=== PATIENT | male | born 1955 | race Caucasian/White ===

== ENCOUNTER 2016-08-13 11:44 | Outpatient (CLI) | payer OTHER | END 2016-08-13 11:45 | disposition home or self-care (01) | DX: Z53.9 Procedure and treatment not carried out, unspecified reason (principal) ==

== ENCOUNTER 2016-08-14 09:15 | Outpatient (CLI) | payer OTHER ==
[2016-08-14] MEDS ORDERED: IOPAMIDOL-300 100 ML VIAL IVP ONE (09:56)
== END 2016-08-14 09:16 | disposition home or self-care (01) ==
DX: I71.2 Thoracic aortic aneurysm, without rupture (principal); R91.8 Other nonspecific abnormal finding of lung field
CPT/HCPCS: 71275; Q9967

== ENCOUNTER 2017-07-22 08:51 | Day surgery (SDC) | payer OTHER ==
[2017-07-22] MEDS ORDERED: LACTATED RINGERS 1,000 ML IV ONE (09:20)
[2017-07-22] MEDS ORDERED: fentaNYL 100 MCG/2 ML VIAL IVP ONE (09:40)
[2017-07-22] MEDS ORDERED: MIDAZOLAM 2 MG/2 ML VIAL IVP ONE (09:40)
[2017-07-22 11:04] VITALS: BP 112/60
== END 2017-07-22 08:52 | disposition home or self-care (01) ==
LOC: SDS 08:51
PROVIDERS: ATTEND Internal Medicine
PROC: 0DBN8ZX Excision of Sigmoid Colon, Via Natural or Artificial Opening Endoscopic, Diagnostic (ICD-10-PCS; 2017-07-22)
PROC: 0DBL8ZX Excision of Transverse Colon, Via Natural or Artificial Opening Endoscopic, Diagnostic (ICD-10-PCS; principal; 2017-07-22 10:00)
DX: Z12.11 Encounter for screening for malignant neoplasm of colon (principal); D12.3 Benign neoplasm of transverse colon; K62.1 Rectal polyp
CPT/HCPCS: 45380; 45385; J7120